=== PATIENT | male | born 1975 | race Caucasian/White ===

== ENCOUNTER → 2023-06-16 15:48 | Outpatient (REF) | payer OTHER, SELFPAY | LOC: HWRAD 15:48 | PROVIDERS: ATTENDING PHYSICIAN Orthopaedic Surgery; FAMILY PHYSICIAN Nurse Practitioner Family | DX: M19.012 Primary osteoarthritis, left shoulder (principal) | CPT/HCPCS: 73200 ==

== ENCOUNTER → 2023-12-24 10:24 | Outpatient (REF) | payer OTHER, SELFPAY | LOC: RAD 10:24 | PROVIDERS: ATTENDING PHYSICIAN Nurse Practitioner Family | DX: M54.2 Cervicalgia (principal) | CPT/HCPCS: 72052 ==

== ENCOUNTER → 2024-06-30 12:49 | Outpatient (REF) | payer OTHER, SELFPAY | LOC: HWRAD 12:49 | PROVIDERS: ATTENDING PHYSICIAN Nurse Practitioner Family | DX: R22.0 Localized swelling, mass and lump, head (principal) | CPT/HCPCS: 76536 ==